=== PATIENT | male | born 1955 ===

== ENCOUNTER → 2023-03-10 02:02 | Outpatient (CLI) | payer MEDICARE, SELFPAY ==
--- NOTE | 2023-03-10 | DI.MRI_ITS ---
Exam(s) MR BRAIN W EXAM: MR BRAIN W CLINICAL HISTORY: F/U ABNL MRI,R90.89,EXPANSILE LESION OF CORPUS CALLOSUM TECHNIQUE: Multiplanar multisequence MRI of the brain was performed. CONTRAST MATERIAL: IV Contrast: 20 mL of Dotarem contrast administered. COMPARISON: MR MRI Brain w/o Contrast from 03/07/2023 FINDINGS: VENTRICLES AND EXTRA AXIAL SPACES: Normal in size and morphology for the patient's age. HEMORRHAGE: None. CEREBRAL PARENCHYMA: There is a 7 x 1.3 x 1.4 cm enhancing lesion involving the left side of the sple nium of the corpus callosum. No other enhancing lesions are seen. MIDLINE SHIFT: None. BRAINSTEM/CEREBELLUM: Normal. CALVARIUM: Normal. VISUALIZED PARANASAL SINUSES/MASTOIDS: Clear. [place]: Normal flow void. PITUITARY GLAND: Unremarkable. 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 Primary d iagnostic considerations are glial tumor, such as a GBM, or metastatic disease. Demyelinating proces ses or infection should also be considered. DATA REPOSITORY:
[2023-03-10] MEDS: Normal Saline - Diluent 50 ML VIAL 25 ML IJ (14:14)
[2023-03-10] MEDS: Gadoterate meglumine 20 ML VIAL IVP (14:14)
== END ==
PROVIDERS: PCP Family Medicine; Visit Provider Family Medicine
DX: G37.1 Central demyelination of corpus callosum (principal)
CPT/HCPCS: 70552